=== PATIENT | female | born 1980 | race Two or more races ===

== ENCOUNTER 2019-08-21 01:55 | Inpatient (IN) | payer MEDICAID ==
[~2019-08-21] VITALS: Ht 160 cm; Wt 84.1 kg
[2019-08-21] VITALS (7 sets, daily range): BP systolic 115–158; BP diastolic 59–80; Ht 160 cm; Wt 84.1 kg
--- NOTE | ~2019-08-21 | DS ---
PATIENT:ELE REBOLLEDO :80 MEDICAL RECORD: [id number] DISCHARGE SUMMARY ADMISSION DATE: 08/21/19 DISCHARGE DATE: 08/23/19 HISTORY OF PRESENT ILLNESS: The patient was admitted on 08/21/2019. A 39-year-old G7, P2 at 40 weeks and 5 days, admitted with spontaneous rupture of membranes and compound presentation. PAST MEDICAL HISTORY: 1. Advanced maternal age. 2. Anemia. PAST SURGICAL HISTORY: Significant for removal of breast cyst. ALLERGIES: The patient reported no known allergies. FAMILY HISTORY: Significant for parents with hypertension. SOCIAL HISTORY: Negative times 3. PHYSICAL EXAMINATION: VITAL SIGNS: On initial assessment, vital signs were stable. The patient was afebrile and normotensive. LUNGS: Clear to auscultation. CARDIOVASCULAR: Regular rate and rhythm. PELVIC: Uterus was appropriately sized and nontender. EXTREMITIES: Lower extremities were free of Homans sign, erythema, or swelling. LABORATORY DATA: On bedside ultrasound, compound presentation was noted and on vaginal exam, a hand could be noted. wellbeing; however, was reassuring with 160 baseline with moderate variability. The patient noted to be having contractions. ASSESSMENT AND PLAN: At that time, 1. Term intrauterine at 40 weeks. 2. Spontaneous rupture of membranes, compound presentation/unstable lie. 3. Advanced maternal age. 4. Anemia. PLAN at that time to proceed with emergency . The patient was consented. Risks and benefits were explained. Operative report is as on the chart. HOSPITAL COURSE: The patient did well overnight on postop day #0, with Dilaudid GEAR HOBBER, IV Toradol, IV fluids, tolerating clear liquid diet. Malik catheter was in place and urine output was found to be adequate overnight. On the morning of postop day #1, the patient continued to do well. Vital signs were stable. The patient was afebrile. Hemoglobin was found to be stable. White count was found to be 16. Incision was clean, dry and intact. The uterus was infraumbilical and appropriately tender. The patient was advanced to general diet and p.o. pain meds at that time. Malik catheter was discontinued and ambulation begun. The patient continued to improve on postoperative day #1. On the morning of postop day #2, white blood cell count had decreased. Vital signs remained stable. The patient remained afebrile. Uterus was infraumbilical and appropriately tender. Incision was clean, dry and intact. Lower extremities DISCHARGE SUMMARY REPORT [id number] ELE REBOLLEDO were free of Homans sign. The patient reported minimal lochia, tolerating general diet and p.o. pain meds, ambulating and voiding freely. The patient was discharged home on postop day #2 with instructions to follow up next week for wound check. TRANSINT:[id number] Voice Confirmation ID: [id number] DOCUMENT ID: [id number] TRACE FERRELL MD CC: [id number] DICTATION DATE: 10/27/19144 CIGAR SORTER: 10/27/19 0725 DIS IN 08/23/19 [facility] [address] [id number]
[2019-08-21 02:36] LABS: HEMATOCRIT 31.8 % (36.0-48.0); HEMOGLOBIN 9.2 g/dL (12-16); MCH 19.8 pg (26.0-34.0); MCHC 28.9 g/dL (31.0-37.0); MCV 68.4 fL (80.0-100.0); MEAN PLATELET VOLUME 10.1 fL (7.4-10.4); RBC 4.65 10x6/uL (4.00-5.40); RDW 18.8 % (11.5-14.5); WBC 9.3 10x3/uL (4.8-10.8)
--- NOTE | 2019-08-21 03:23 | NUR ---
BABY BOY BORN AT 0301.
--- NOTE | 2019-08-21 03:47 | NUR ---
[facility] NOTIF[facility] ME THAT HE ALREADY GAVE 2MG OF DILAUDID IN THE OR AT THE END OF THE CASE FOR PAIN. PT IS NOW IN PACU AND VOICE "NO PAIN". WILL CONTINUE TO MONITOR
--- NOTE | 2019-08-21 04:06 | NUR ---
BABY IS IN ROOM ATTACHED TO BREAST
--- NOTE | 2019-08-21 04:11 | NUR ---
URINE IN GIBSON TUBE APPEARS TO BE LIGHT YELLOW AND CLEAR
--- NOTE | 2019-08-21 04:21 | NUR ---
BABY IS BACK WITH NURSERY NURSE TO NURSERY
--- NOTE | 2019-08-21 04:27 | NUR ---
PT REC'D TO ROOM 1273 VIA BED FROM RECOVERY. LUNGS CLEAR. BS BYPOACTIVE TO ALL QUADRANTS. DRESSING TO ABDOMEN CDI. GIBSON CATH PATENT WITH YELLOW URINE NOTED. 400 ML EMPTIED AT THIS TIME. SCDS ON AND FUNCTIONAL AT THIS TIME. FAMILY AT BEDSIDE AND SUPPORTIVE. NO ACUTE DISTRESS NOTED. SIDERAILS UP FOR SAFETY. CALL LIGHT IN PT REACH. Jordi ALBA RN
--- NOTE | 2019-08-21 05:00 | NUR ---
RD PLUMBER PIPE FITTING UP AT THIS TIME AND BOLUS DOSE GIVEN FOR PAIN LEVEL OF 7. PT INSTRUCTED ON USE OF PLUMBER PIPE FITTING AT THIS TIME. Jordi ALBA RN
[2019-08-21] MEDS ORDERED: PRENAVITE1 TAB PO (06:08)
--- NOTE | 2019-08-21 06:15 | NUR ---
BLOOD DRAWN THIS AM AND TO LAB. 125 ML FROM GIBSON CATH. JERMAN CARE PROVIDED. MODERATE LOCHIA NOTED WITH SMALL CLOTS. FUNDUS FIRM U/2. DRESSING CDI/ L BALAJI ALBA
[2019-08-21 06:36] LABS: BASOPHILS 0.1 % (0-2); EOSINOPHILS 0.1 % (0-7); HEMATOCRIT 37.7 % (36.0-48.0); IMMATURE GRANULOCYTES 0.7 % (0-5); MCH 22.8 pg (26.0-34.0); MCHC 31.3 g/dL (31.0-37.0); MEAN PLATELET VOLUME 9.9 fL (7.4-10.4); MONOCYTES 4.5 % (2-11); NEUTROPHILS 88.6 % (40-80); PLATELET COUNT 284 10x3/uL (130-400); RBC 5.17 10x6/uL (4.00-5.40); RDW 22.7 % (11.5-14.5)
[2019-08-21 06:38] LABS: HEMOGLOBIN 11.8 g/dL (12-16); MCV 72.9 fL (80.0-100.0)
--- NOTE | 2019-08-21 08:20 | NUR ---
THIS RN TO ROOM FOR SHIFT ASSESSMENT. PT SITTING UP IN BED, AWAKE, TALKING WITH NURSERY RN. PT RATES PAIN 5/10, DENIES VAZQUEZ OR NAUSEA. 75ML DARK YELLOW URINE EMPTIED FROM UROMETER. VSS, SEE FLOWSHEET FOR DOC. PITOCIN INFUSING TO PT'S LEFT WRIST PIV ORDERED. IV SITE C/D/I, NO SIGNS OF PHLEBITIS OR INFILATRATION. ICE PACK TO ABD INCISION SITE. ABD DSG IS C/D/I. FF, ML, U/2. SMALL TO MOD RUBRA LOCHIA, NO CLOTS. PERIPAD CHANGED. PT REPORTS WORSE PAIN FOLLOWING FUNDAL CHECK. PT ADMIN 0.4MG BOLUS DILAUDID VIA REFRIGERATOR ASSEMBLER ORDERED. WILL ADMIN TORADOL ORDERED PER STABLE LOCHIA AND VS. SCD'S ON LE BILAT. GENERALIZED EDEMA NOTE TO LE BILAT, 1+, NON-PITTING. POC DISCUSSED WITH PT. FRESH ICE WATER GIVEN. ABD ICE PACK REFILLED. SRux2, CL IN REACH.
--- NOTE | 2019-08-21 08:37 | NUR ---
TORADOL ADMIN ORDERED, SEE EMAR FOR DOC.
--- NOTE | 2019-08-21 10:00 | NUR ---
POPSICLES PROVIDED TO PT PER REQUEST, DENIES FURTHER NEEDS. FAMILY AT BEDSIDE. SRUx2, CL IN REACH.
[2019-08-21 11:11] LABS: BASOPHILS 0.1 % (0-2); EOSINOPHILS 0.1 % (0-7); HEMATOCRIT 34.2 % (36.0-48.0); HEMOGLOBIN 10.6 g/dL (12-16); IMMATURE GRANULOCYTES 0.3 % (0-5); LYMPHOCYTES 10.8 % (15-50); MCH 22.6 pg (26.0-34.0); MCV 72.8 fL (80.0-100.0); MEAN PLATELET VOLUME 10.1 fL (7.4-10.4); MONOCYTES 5.5 % (2-11); NEUTROPHILS 83.2 % (40-80); PLATELET COUNT 277 10x3/uL (130-400); RDW 22.2 % (11.5-14.5)
--- NOTE | 2019-08-21 11:30 | NUR ---
THIS RN TO ROOM FOR PT CHECK. PT RATING PAIN 4/10 AT THIS TIME. VSS, SEE FLOWSHEET FOR DOC. 45ML DARK YELLOW URINE EMPTIED FROM UROMETER. PT PROVIDED WITH CUP OF ICE PER REQUEST, ALONG WITH ICE WATER AND ENCOURAGED TO DRINK PER LOW URINE OUTPUT. UNDERSTANDING VERBALIZED. FF, ML, U/2. SMALL TO MOD RUBRA LOCHIA, NO CLOTS. PERIPAD CHANGED. SRUx2, CL IN REACH. WILL CONT TO MONITOR.
--- NOTE | 2019-08-21 13:49 | NUR ---
PT PRESSES CALL LIGHT, THIS RN TO ROOM. PT C/O UPPER ABD PAIN WHEN EATING CLEAR LIQUIDS, STATES EATING MAKES HER STOMACH HURT. DISCUSSES WITH PT AND FAMILY THAT BOWELS WERE HYPOACTIVE THIS MORNING FOLLOWING SURGERY, AND THAT SHE MAY HAVE GAS PAIN WELL. PT AGREES, DECIDES SHE WANTS GAS MEDICATION. PT ADMIN MYLICON ORDERED, SEE EMAR FOR DOC. 50ML DARK YELLOW URINE EMPTIED FROM UROMETER. PT STATES SHE CANNOT DRINK MUCH DUE TO STOMACH PAIN/UPSET WITH EATING. 1L LR HUNG VIA GRAVITY AT MODERATE DRIP PER LOW UOP WITH DARK COLOR. PT DENIES FURTHER NEEDS AT THIS TIME. WILL RE EVALUATE. FAMILY AT BEDSIDE.
--- NOTE | 2019-08-21 15:32 | NUR ---
THIS RN TO ROOM FOR PT CHECK. PT RESTING IN BED, SUPINE WITH LEFT TILT. EYES CLOSED, ALERTS THIS RN ENTERS ROOM. PT RATES PAIN 7/10 AT THIS TIME. 60ML DARK YELLOW URINE EMPTIED FROM UROMETER. FF, ML, SMALL TO MOD RUBRA LOCHIA, NO CLOTS. PERIPAD CHANGED. NEW ICE PACK TO INCISION. FRESH WATER GIVEN. VSS ,SEE FLOWSHEET FOR DOC. PT DENIES FURTHER NEEDS, FAMILY AT BEDSIDE. SRUx2, CL IN REACH. WILL CONT TO MONITOR.
--- NOTE | 2019-08-21 15:32 | NUR ---
TORADOL ADMIN FOR PAIN, SEE EMAR FOR DOC.
--- NOTE | 2019-08-21 18:25 | NUR ---
PT RESTING IN BED, SUPINE, IN BASSINETTE NEXT TO BED. PT RATES PAIN 5/10, DENIES NEEDS. 100ML DARK YELLOW URINE EMPTIED FROM UROMETER, MORE LIGHT IN COLOR THAN PREVIOUS CHECK. WILL ALLOW PT TO REST. SRUx2, CL IN REACH.
--- NOTE | 2019-08-21 19:00 | NUR ---
REPORT TO PM SHIFT.
--- NOTE | 2019-08-21 19:38 | NUR ---
PT REC'D IN BED AT THIS TIME. FAMILY AT THE BEDSIDE. PT STATES THAT PAIN IS A 6 AT THIS TIME. PT ASSISTED WITH DROP WIRER ADMINISTRATION AT THIS TIME. IV CONVERTED TO SALINE LOCK. LUNGS CLEAR. BS HYPOACTIVE IN ALL QUADRANTS. PT INFORMED THAT SHE UST AMBULATE TONIGHT. UNDERSTANDING VERBALIZED. DRESSING TO ABDOMEN CDI. FUNDUS REMIANS FIRM AND U/2. SMALL LOCHIA NOTED. GIBSON CATH WITH 300 ML OF SHERRI URINE NOTED. PERICARE PROVIDED AND PT UP TO AMBULATE. PT AMBULATED ACROSS THE RITTER AND BACL. WILL CONTUNUE TO ENCOURAGE AMBULATION. Jordi ALBA RN
--- NOTE | 2019-08-21 20:00 | NUR ---
PT ASSISTED BACK TO BED AT THIS TIME. PT TOLERATED AMBULATING WELL. NO DISTRESS NOTED. Jordi ALBA RN
--- NOTE | 2019-08-21 21:09 | NUR ---
PT MEDICATED WITH TORADOL AND NORCO FOR PAIN. WILL CONTINUE TO MONITOR. Jordi ALBA RN
--- NOTE | 2019-08-21 22:04 | NUR ---
PT STATES PAIN IS A 4 AT THIS TIME. WILL CONTINUE TO MONITOR. GIBSON CATH OUT AT 2215 200 ML NOTED. PT UP TO AMBULATE IN RITTER AT THIS TIME. PT AMBULATED TO NURSE'S STATION AND BACK TO ROOM. Jordi ALBA RN
[2019-08-22 00:05] VITALS: BP 114/61
--- NOTE | 2019-08-22 00:05 | NUR ---
PT UP TO RESTROOM FOR PERICARE AT THIS TIME. PT VOIDED 200 ML OF SHERRI URINE. VITAL SIGNS STABLE AT THIS TIME. Jordi ALBA RN
--- NOTE | 2019-08-22 01:22 | NUR ---
PT MEDICATED FOR PAIN LEVEL OF 5. WILL MONITOR. Jordi ALBA RN
[2019-08-22 05:56] VITALS: BP 126/72
--- NOTE | 2019-08-22 05:56 | NUR ---
VSS THIS SHIFT. PT AFEBRILE. PT UP TO VOID AHD PERICARE PROVIDED. SMALL LOCHIA NOTED. PT VOIDED 500 ML THIS AM. PT INSTRUCTED TOP AMBULATE THIS AM, PT PUT TO RITTER TO WALK. NO ACUTE DISTRESS NOTED. Jordi ALBA. RN
[2019-08-22 06:48] LABS: BASOPHILS 0.1 % (0-2); HEMATOCRIT 31.4 % (36.0-48.0); HEMOGLOBIN 9.6 g/dL (12-16); IMMATURE GRANULOCYTES 0.4 % (0-5); MCH 22.5 pg (26.0-34.0); MCHC 30.6 g/dL (31.0-37.0); MCV 73.5 fL (80.0-100.0); MEAN PLATELET VOLUME 9.7 fL (7.4-10.4); MONOCYTES 5.8 % (2-11); NEUTROPHILS 77.7 % (40-80); PLATELET COUNT 272 10x3/uL (130-400); RBC 4.27 10x6/uL (4.00-5.40); RDW 22.5 % (11.5-14.5)
[2019-08-22 06:52] LABS: WBC 16.9 10x3/uL (4.8-10.8)
--- NOTE | 2019-08-22 08:00 | NUR ---
AM ASSESSMENT COMPLETED CHARTED ON FLOWSHEET. PT RATES PAIN AT INCISION AT 5/10, FUNDUS FIRM AT U/U WITH LIGHT BLEEDING NOTED TO JERMAN PAD, SHE DENIES CLOTS WITH VOIDS. WHITE ABD BANDAGE REMAINS IN PLACE, COVERING INCISION, BANDAGE NOTED TO BE CLEAN AND DRY. IV TO LEFT WRIST PATENT AND FLUSHED EASILY, PT ASKING WHEN CAN BE REMOVED, UNDERSTANDS THAT MD WOULD BE ASKED WHEN HE ROUNDS. DENIES ANY OTHER NEEDS AT THIS TIME.
[2019-08-22 08:10] LABS: RAPID PLASMA REAGIN Non Reactive (Non Reactive)
[2019-08-22 08:15] VITALS: BP 111/64
--- NOTE | 2019-08-22 08:50 | NUR ---
VERIFIED VERBALLY WITH DR FERRELL THAT SALINE LOCK COULD BE REMOVED. AM LABS REVIEWED, OK TO REMOVE SALINE LOCK.
--- NOTE | 2019-08-22 10:11 | NUR ---
large glass of tap water as requested by pt. rates pain at 3/10. Encouraged pt to get up and walk in halls, she responds with "ok" infant in crib at bedside and sig other present.
--- NOTE | 2019-08-22 12:30 | NUR ---
pt up to void, lab at bedside for scheduled draw.
[2019-08-22 13:00] LABS: BASOPHILS 0.1 % (0-2); EOSINOPHILS 0.5 % (0-7); HEMATOCRIT 31.9 % (36.0-48.0); HEMOGLOBIN 9.7 g/dL (12-16); IMMATURE GRANULOCYTES 0.6 % (0-5); LYMPHOCYTES 11.5 % (15-50); MCH 22.4 pg (26.0-34.0); MCHC 30.4 g/dL (31.0-37.0); MCV 73.5 fL (80.0-100.0); MEAN PLATELET VOLUME 9.8 fL (7.4-10.4); MONOCYTES 5.6 % (2-11); NEUTROPHILS 81.7 % (40-80); PLATELET COUNT 284 10x3/uL (130-400); RBC 4.34 10x6/uL (4.00-5.40); RDW 22.7 % (11.5-14.5); WBC 18.6 10x3/uL (4.8-10.8)
--- NOTE | 2019-08-22 13:30 | NUR ---
PT AND SPOUSE AMB IN HALLS WITH IN CARRIER, PT WALKS TO NURSES DESK AND BACK TO ROOM X 2. DENIES NEEDS.
--- NOTE | 2019-08-22 14:00 | NUR ---
PT ASKING IF SALINE LOCK CAN BE REMOVED, UNDERSTANDS THAT POSSIBLE IV WOULD HAVE TO BE RESTARTED. SALINE LOCK REMOVED WITH CATH INTACT. DENIES ANY OTHER NEEDS AT THIS TIME.
--- NOTE | 2019-08-22 15:15 | NUR ---
PT AMB IN HALLS WITH IN CARRIER, TO GET LARGE CUP OF ICE WATER, BACK TO ROOM WITHOUT ANY NEEDS AT THIS TIME.
--- NOTE | 2019-08-22 17:00 | NUR ---
RATES PAIN AT 4/10 AT THIS TIME, JERMAN PADS AND MESH BRIEFS PLACED IN BATHROOM. NO OTHER NEEDS VOICED. INFANT IN CRIB AT BEDSIDE.
--- NOTE | 2019-08-22 19:15 | NUR ---
PM ASSESSMENT COMPLETE CHARTED IN FLOWSHEET. PT RATES PAIN AT 7/10 AT INCISION SITE AND BACK. SEE EMAR FOR PAIN AUTHORIZATION REP. INCISION SITE CLEAN, DRY, AND CHAYA INTACT. FUNDUS FIRM AND MIDLINE. PT DENIES ANY ISSUES WITH VOIDING. PT STATES SMALL AMOUNT OF BLOOD ON PAD WITH NO CLOTS. DINNER TRAY NOTED AT TABLE. FAMILY AT BEDSIDE. IN ROOM, NO DISTRESS NOTED. PT DENIES ALL OTHER NEEDS AT THIS TIME. SRUP X2, CALL LIGHT AND PHONE WITHIN REACH.
[2019-08-22 19:50] VITALS: BP 129/72
--- NOTE | 2019-08-22 20:24 | NUR ---
PAIN REASSESSMENT COMPLETED BY THIS NURSE. PT STATES PAIN PILL EFFECTIVE NOW RATES PAIN AT 3/10. WILL CONTINUE TO MONITOR AND ASSESS. SRUPX2, CALL LIGHT AND PHONE WITHIN REACH.
--- NOTE | 2019-08-22 21:30 | NUR ---
THIS RN ASSISTED PT AND BELONGINGS TO NEW ROOM ON WOMENS SERVICES. PT AMBULATED SELF DOWN HALLWAY. NEW ROOM AND LAY OUT OF ROOM EXPLAINED, ALL PERSONAL ITEMS ACCOUNTED FOR. IN NURSERY AT THIS TIME. FAMILY ACCOMPANIED PT TO NEW ROOM. PT DENIES ALL NEEDS AT THIS TIME. SRUPX2, CALL LIGHT AND PHONE WITHIN REACH.
--- NOTE | 2019-08-22 22:05 | NUR ---
PT RATES BACK AND ABDOMINAL PAIN AT 4/10. SEE EMAR FOR PAIN TAX COLLECTION COORDINATOR. PT STATED SHE IS VOIDING WITHOUT CLOTS. DENIES ALL OTHER NEEDS AT THIS TIME. SRUPX2, CALL LIGHT AND PHONE WITHIN REACH.
[2019-08-22 23:01] VITALS: BP 124/72
--- NOTE | 2019-08-22 23:02 | NUR ---
PAIN REASSESSMENT COMPLETED BY THIS RN. PT RATES PAIN AT 2/10. VSS. DENIES ALL OTHER NEEDS AT THIS TIME. FOB AT BEDSIDE. INFANT IN CRIB AT BEDSIDE. NO DISTESS NOTED. SRUPX2, CALL LIGHT AND PHONE WITHIN REACH.
--- NOTE | 2019-08-23 00:31 | NUR ---
rounding completed by this RN. pt sleeping at this time, infant in crib sleeping at bedside. respirations even and unlabored, no distess noted. srupx2, call light and phone within reach.
--- NOTE | 2019-08-23 02:32 | NUR ---
rounding completed by this rn. pt sleeping in bed with sleeping in crib at bedside. respirations even and unlabored, no distress noted. srupx2, call light and phone within reach.
--- NOTE | 2019-08-23 06:12 | NUR ---
rounding completed by this rn. pt rates pain at 7/10 in abdominal area. see emar for certified medical aide. sleeping in crib at bedside. fob at bedside. pt denies all other needs at this time. srupx2, call light and phone within reach.
[2019-08-23 07:15] VITALS: BP 128/71
--- NOTE | 2019-08-23 07:15 | NUR ---
ASSESSMENT PER FLOW SHEET, VS OBTAINED, FF, ML, U/1, PT REPORTS LITE BLEEDING WITH NO CLOTS, BIKINI INC WITH CHAYA CDI WITH NO DRAINAGE NOTED, PT REPORTS FLATUS, NO BM AND VOIDING WITH NO DIFFICULTY, DURING ASSESSMENT, DR FERRELL ENTERS ROOM, TALKS TO PT REGARDING LAB WORK, DISCHARGE, AND NEXT APPOINTMENT, PT VERBALIZES UNDERSTANDING, DR FERRELL LEAVES ROOM, PT RATES INC PAIN 03/01, INFORMED PT THAT I WILL ADM PAIN MED WHEN DUE, PT VERBALIZES UNDERSTANDING, REQUESTED AND SERVED FRESH H20, DENIES FURTHER NEEDS, FOB AT BEDSIDE BOTTLING FEEDING INFANT
--- NOTE | 2019-08-23 08:30 | NUR ---
PT UP IN BR AT THIS TIME, FOB ASSISTING PT, PT DENIES NEEDS, IN OPEN CRIB CART IN ROOM
--- NOTE | 2019-08-23 09:32 | NUR ---
PT SITTING UP IN CHAIR, VISITING WITH FAMILY AND FRIENDS, RATES INC PAIN 03/31, ADM CHRIS PER MD ORDERS, SEE EMAR, PT DENIES FURTHER NEEDS, BREAKFAST TRAY REMOVED
--- NOTE | 2019-08-23 09:41 | NUR ---
PT AMB IN RITTER, GAIT STEADY, PUSHING INFANT IN OPEN CRIB CART, FOB AT SIDE
--- NOTE | 2019-08-23 09:50 | NUR ---
PT BACK TO ROOM
--- NOTE | 2019-08-23 10:10 | NUR ---
WENT OVER TDAP AND FLU VACCINE INFORMATION WITH PT, PT REFUSES FLU VACCINE, IN OPEN CRIB CART AND FOB AT BEDSIDE
[2019-08-23 10:20] LABS: BASOPHILS 0.1 % (0-2); EOSINOPHILS 2.1 % (0-7); HEMATOCRIT 28.2 % (36.0-48.0); HEMOGLOBIN 8.6 g/dL (12-16); IMMATURE GRANULOCYTES 0.9 % (0-5); MCH 22.5 pg (26.0-34.0); MCHC 30.5 g/dL (31.0-37.0); MCV 73.8 fL (80.0-100.0); MEAN PLATELET VOLUME 9.5 fL (7.4-10.4); MONOCYTES 5.2 % (2-11); NEUTROPHILS 81.7 % (40-80); RBC 3.82 10x6/uL (4.00-5.40)
[2019-08-23 10:21] LABS: PLATELET COUNT 254 10x3/uL (130-400); WBC 12.1 10x3/uL (4.8-10.8)
--- NOTE | 2019-08-23 10:30 | NUR ---
PT REQUESTS TDAP, BUT STILL REFUSES FLU VACCINE
--- NOTE | 2019-08-23 10:36 | NUR ---
DR FERRELL PAGED
--- NOTE | 2019-08-23 10:41 | NUR ---
DR FERRELL CALLS UNIT, REPORT OF LAB WORK, ORDERS RECEIVED FOR DISCHARGE HOME WITH INFANT
--- NOTE | 2019-08-23 10:56 | NUR ---
POC DISCUSSED WITH PT REGARDING DISCHARGE, PT VERBALIZES UNDERSTANDING, ADM TDAP IN LEFT DELTOID PER MD ORDERS, SEE EMAR, PT DENIES NEEDS AT THIS TIME
[2019-08-23 11:30] VITALS: BP 133/78
--- NOTE | 2019-08-23 11:30 | NUR ---
PT RESTING, WATCHING TV, VS OBTAINED, PT RATES INC PAIN 2/, DENIES NEEDS AT THIS TIME, IN OPEN CRIB CART AND FOB AT BEDSIDE
[2019-08-23] MEDS ORDERED: IBUPROFEN600 MG PO (12:10)
[2019-08-23] MEDS ORDERED: HYDROCODON-ACE1 EA10 PO (12:10)
--- NOTE | 2019-08-23 13:21 | NUR ---
PT SITTING UP EATING LUNCH, ADM TORADOL PER MD ORDERS, SEE EMAR, PT DENIES NEEDS AT THIS TIME, INFANT IN OPEN CRIB CART AND FOB AT BEDSIDE
--- NOTE | 2019-08-23 14:18 | NUR ---
PT WATCHING TV, RATES INC PAIN 01/29, DENIES NEEDS AT THIS TIME, INFANT IN OPEN CRIB CART AND FOB AT BEDSIDE
--- NOTE | 2019-08-23 15:00 | NUR ---
PT RESTING WITH EYES CLOSED, RESP QUIET, NO DISTRESS NOTED, LEFT UNDISTURBED AT THIS TIME, FOB AND INFANT AT BEDSIDE
--- NOTE | 2019-08-23 15:11 | NUR ---
PT RESTING WITH EYES CLOSED, AROUSES TO SOFT VERBAL STIMULATION, OBTAINED FSBS, PT DENIES ANY NAUSEA AFTER DRINKING H20 AND CHICKEN BROTH, PT REQUESTED AND SERVED DIET DR STACY, SCD'S CONTINUE ON AND WORKING PROPERLY, PT DENIES FURTHER NEEDS, SPOUSE AT BEDSIDE
--- NOTE | 2019-08-23 16:44 | NUR ---
PT GETTING READY FOR DISCHARGE, HAS BEEN DISCHARGED AT THIS TIME, WENT OVER DISCHARGE PAPERWORK AND PRESCRIPTIONS WITH PT, PT VERBALIZES UNDERSTANDING, QUESTIONS ANSWERED, PT INST TO USE CALL LIGHT WHEN READY, PT AND FOB VERBALIZE UNDERSTANDING
--- NOTE | 2019-08-23 17:22 | NUR ---
PT DISCHARGED HOME VIA WC WITH FOB AND INFANT IN CAR SEAT CARRIER, PT HAS ALL BELONGINGS, PAPERWORK, AND PRESCRIPTIONS
--- NOTE | 2019-09-18 14:22 | OP ---
PATIENT NAME: ELE REBOLLEDO MEDICAL RECORD: [id number] :80 LOCATION:[facility] ADMISSION DATE:08/21/19 SURGEON: DAQUAN STEWART MD DATE OF OPERATION: 08/21/2019 PREOPERATIVE DIAGNOSES: 1. Left arm presentation with transverse lie. 2. Spontaneous rupture of membranes. 3. Labor. POSTOPERATIVE DIAGNOSES: 1. Left arm presentation with transverse lie. 2. Spontaneous rupture of membranes. 3. Labor. PROCEDURE: Primary low transverse section with superior vertical extension. SURGEON: Daquan Stewart MD ANESTHESIA: Regional via spinal. INTRAVENOUS FLUIDS: Per anesthesia record. ESTIMATED BLOOD LOSS: 1500 cc. FINDINGS: 1. Left arm presentation with a transverse lie, head entrapped on the left side. 2. Left uterine artery transection. 3. Left broad ligament defect. 4. Normal-appearing fallopian tubes and ovaries bilaterally. 5. Apgars 8 at one and 9 at five. COMPLICATIONS: None apparent. DESCRIPTION OF PROCEDURE: The patient was taken to the operating room, where regional anesthesia was achieved without any difficulty. The patient was then prepped and draped in normal sterile fashion in the dorsal supine position. SCDs were on and functioning normally. A Malik catheter had been placed and was draining freely. At this point, a Pfannenstiel skin incision was made and extended downward to the underlying subcutaneous fat to the level of the fascia. The fascia was then excised in the midline and the fascial incision was extended bilaterally using the Sherman scissors. The superior and inferior aspects of the fascial incision were grasped with Iris clamps, tented upward, and sharply dissected from the underlying rectus muscle using the Sherman scissors and the Bovie cautery. The rectus muscles were then bluntly in the midline and the peritoneum entered sharply at the superior aspect using the Metzenbaum scissors. Peritoneal incision was then extended using the Metzenbaum scissors bilaterally and a bladder blade was placed into the pelvis. A bladder flap was created by excising the anterior leaf of the broad ligament across the lower uterine segment. At this point, a low transverse incision was made and extended superiorly and inferiorly using the Pelosi method. Upon delivery, the right arm was presented spontaneously through the uterine incision. At this point, the head was unable to be entrapped from the right side. A vertical OPERATIVE REPORT [id number] KESHA,ELE extension of the uterine incision was performed using the bandage scissors and the head was then delivered through the incision atraumatically. Infant was then delivered fully and the baby was then bulb suctioned. The cord was clamped times 2, cut, and the infant was handed to the awaiting nursery team. Cord was retained for gases. The placenta was removed manually intact, 3-vessel cord was noted. The uterus was exteriorized, cleared of all clots and debris, and the uterine incision was repaired using 0 Vicryl in a running locked fashion times 2. Posterior cul-de-sac was then thoroughly irrigated, and the uterus was replaced into the pelvis. The anterior cul-de-sac was then thoroughly irrigated and meticulous hemostasis was noted from the uterine incision. Counts were correct times 2 for needles, sponges, and instruments. The fascia was repaired with 0 loop PDS and the skin was repaired with rosana. The patient tolerated the procedure well and was transported to postanesthesia recovery stable without incident. TRANSINT:[id number] Voice Confirmation ID: [id number] DOCUMENT ID: [id number] DAQUAN STEWART MD at 1422 CC: [id number] DICTATION DATE: 08/25/19 1641 MANAGER OF CORPORATE: 08/25/19 2310 DIS IN 08/23/19 [facility] [address] [place] [address]
== END 2019-08-23 17:22 | disposition home or self-care (01) | DRG 788 ==
LOC: D.LDO 01:55 → D.LD 02:14 → D.WS 08-22 21:30
PROVIDERS: ADMIT Obstetrics & Gynecology; ATTEND Obstetrics & Gynecology
PROC: 10D00Z1 Extraction of Products of Conception, Low, Open Approach (ICD-10-PCS; principal; 2019-08-21 02:49)
DX: O64.8XX0 Obstructed labor due to other malposition and malpresentation, not applicable or unspecified (principal); Z3A.40 40 weeks gestation of pregnancy; Z37.0 Single live birth; O99.214 Obesity complicating childbirth; O09.529 Supervision of elderly multigravida, unspecified trimester